=== PATIENT | male | born 2000 | race Caucasian/White ===

== ENCOUNTER 2021-04-23 17:24 | Emergency (ER) | payer BC, OTHER ==
[~2021-04-23] VITALS: Ht 175 cm; Wt 63.5 kg
[2021-04-23] MEDS ORDERED: LACTATED RINGERS 1,000 ML IV SCH (17:45)
[2021-04-23] MEDS ORDERED: ONDANSETRON 4 MG/2 ML (SDV) Z0FRAN IVP ONE (18:00)
[2021-04-23] MEDS ORDERED: ESCI10TA PO (18:46)
--- NOTE | 2021-04-23 18:46 | ED GI ---
General Chief Complaint: Abdominal/GI Problems Stated Complaint: VOMITING,CHILLS,DIARRHEA,PASSED OUT Nursing Triage Note: PT PRESENTS TO ED VIA POV FROM HOME WITH COMPLAINTS OF POOL/N/V X 2 DAYS. PT REPORTS HE GOT UP TOO FAST TODAY AND PASSED OUT. PT DENIES ANY RECENT FEVER/COUGH. Source of Information: Patient Exam Limitations: No Limitations (CONNOR COLMNEARES APRN) History of Present Illness Date Seen by Provider: Apr 23, 2021 Time Seen by Provider: 18:42 Initial Comments To ER with reports that he has had headache nausea vomiting for 2 days. He states that he has a history of significant anxiety. He takes no medications for it. He has never taken medications for it. He works at [employer] here in [place] and has worked there since January of this year. He states that he gets these symptoms about an hour before work and he attributes it to anxiety. He also wants to make sure that it is not related to Covid. Timing/Duration: 1-2 Days Severity/Quality: Moderate Radiation: No Radiation Activities at Onset: None (CONNOR COLMENARES APRN) Allergies and Home Medications Allergies Coded Allergies: No Known Drug Allergies (Unverified , 04/23/21) Patient Home Medication List Home Medication List Reviewed: Yes (CONNOR COLMENARES APRN) Escitalopram Oxalate (Lexapro) 10 Mg Tablet, 10 MG PO DAILY Prescribed by: CONNOR COLMENARES on 04/23/211845 Review of Systems Review of Systems Constitutional: see HPI EENTM: No Symptoms Reported Respiratory: No Symptoms Reported Cardiovascular: No Symptoms Reported Gastrointestinal: No Symptoms Reported Genitourinary: No Symptoms Reported Musculoskeletal: no symptoms reported Skin: no symptoms reported Psychiatric/Neurological: No Symptoms Reported Endocrine: No Symptoms Reported Hematologic/Lymphatic: No Symptoms Reported (CONNOR COLMENARES APRN) Past Ydxyszw-Ckasin-Hvsyad Hx Patient Social History Tobacco Use?: No Substance use?: No Alcohol Use?: No Pt feels they are or have been: No (CONNOR COLMENARES APRN) Immunizations Up To Date First/Initial COVID19 Vaccinat: OCTOBER 2020 Second COVID19 Vaccination Kuldip: NOVEMBER 2020 COVID19 Vaccine Shank Rander: MODERNA (CONNOR COLMENARES APRN) Past Medical History Surgery/Hospitalization HX: PMH: ANXIETY (CONNOR COLMENARES APRN) Physical Exam Vital Signs Vital Signs - First Documented 04/23/21 17:59 Temp 37.0 Pulse 106 Resp 18 B/P (MAP) 131/95 (107) Pulse Ox 98 (ANKIT OCONNOR MD) Vital Signs Capillary Refill : Less Than 3 Seconds (CONNOR COLMENARES APRN) Height/Weight/BMI Height: '" Weight: lbs. oz. kg; 20.00 BMI Method: General Appearance: WD/WN, no apparent distress, thin Neck: non-tender, full range of motion Respiratory: no respiratory distress, no accessory muscle use Cardiovascular: regular rate, rhythm, no murmur Gastrointestinal: normal bowel sounds, non tender, soft Extremities: normal range of motion, non-tender Neurologic/Psychiatric: alert, normal mood/affect, oriented x 3 Skin: normal color, warm/dry (CONNOR COLMENARES APRN) Progress/Results/Core Measures Results/Orders Lab Results Laboratory Tests Test 04/23/21 17:57 Range/Units SARS-CoV-2 RNA (RT-PCR) Not Detected Not Detecte (ANKIT OCONNOR MD) Vital Signs/I&O 04/23/21 04/23/21 17:59 18:52 Temp 37.0 37.0 Pulse 106 106 Resp 18 18 B/P (MAP) 131/95 (107) 131/95 Pulse Ox 98 98 (ANKIT OCONNOR MD) Blood Pressure Mean: 107 Departure Impression Primary Impression: Anxiety Disposition: 01 HOME, SELF-CARE Condition: Stable Departure-Patient Inst. Decision time for Depature: 18:44 (CONNOR COLMENARES APRN) Referrals: NO,LOCAL PHYSICIAN (PCP/Family) Primary Care Physician Patient Instructions: Anxiety, Adult (DC) Add. Discharge Instructions: All discharge instructions reviewed with patient and/or family. Voiced understanding. Scripts Escitalopram Oxalate (Lexapro) 10 Mg Tablet 10 MG PO DAILY, #30 TAB 1 Refill Prov: CONNOR COLMENARES APRN 04/23/21 Work/School Note: Work Release Form Date Seen in the Emergency Department: Apr 23, 2021 Return to Work: Apr 24, 2021 ATTENDING PHYSICIAN NOTE: I was physically present as attending physician in the emergency department during the care of this patient, but I was not directly involved in the decision making or delivery of care for this patient. (ANKIT OCONNOR MD) CONNOR COLMENARES APRN Apr 23, 2021 18:46 ANKIT OCONNOR MD Apr 25, 2021 14:38
[2021-04-23 18:52] VITALS: BP 131/95
== END 2021-04-23 18:52 | disposition home or self-care (01) ==
LOC: ER 17:30
DX: F41.9 Anxiety disorder, unspecified (principal); Z20.822 Contact with and (suspected) exposure to COVID-19
CPT/HCPCS: 87636; 99281